=== PATIENT | female | born 1975 | race Caucasian/White ===

== ENCOUNTER 2017-08-25 10:28 | Outpatient (CLI) | payer OTHER | END 2017-08-25 10:29 | disposition home or self-care (01) | LOC: LABHHL 10:28 | PROVIDERS: ATTEND Surgery | DX: N60.91 Unspecified benign mammary dysplasia of right breast (principal) | CPT/HCPCS: 88305 ==

== ENCOUNTER 2018-01-11 14:06 | Outpatient (CLI) | payer OTHER ==
--- NOTE | 2018-01-12 16:05 | Magnetic Resonance Report ---
BILATERAL BREAST MRI WITHOUT AND WITH CONTRAST: 01/11/18 14:06:00 CLINICAL: High risk for breast cancer. Status post right benign breast biopsies at 11 o'clock 6 cm from the nipple and at 8:30 o'clock 4 cm from the nipple. COMPARISON:01/01/18 screening mammogram. TECHNIQUE: Axial 1.0-mm T1 without, axial high resolution 2.0-mm T2 and axial 1.0-mm dynamic Vibrant high-resolution postcontrast T1 fat saturation sequences on a 1.5 Mony magnet. The examination was performed with an 8 channel dedicated [place] breast coil. Post processing with CAD and subtraction was performed on an [employer] workstation. 15.0 cc of Multihance was injected without incident for the contrast portion of the exam. Consent was obtained prior to the administration of the contrast. FINDINGS: Right: Minimal background parenchyma enhancement. An oval smooth enhancing mass in the lower outer quadrant at 8 o'clock 9.2 cm from the nipple measures 12.0 x 1.1 x 0.6 cm. It demonstrates homogeneous enhancement with a relatively low peak enhancement at 77% and 100% type I persistent waveform. The mass is hypointense on T1. No other mass or suspicious enhancement. No suspicious lymph nodes. Left: Minimal background parenchymal enhancement. No mass or suspicious enhancement. A 3 cm x 1.5 cm left axillary lymph node has central fat that has an asymmetrically thickened (7 mm) cortex. IMPRESSION: Negative study except for a large mildly suspicious left axillary lymph node with asymmetric cortical thickening. Recommend ultrasound-guided needle core biopsy of the left axillary lymph node to confirm benignity. RIGHT BI-RADS 1 -- Negative LEFT BI-RADS 4A -- Mildly Suspicious
== END 2018-01-11 14:07 | disposition home or self-care (01) ==
LOC: SPVIMAG 14:06
PROVIDERS: ATTEND Surgery
DX: N60.21 Fibroadenosis of right breast (principal); N60.32 Fibrosclerosis of left breast; N60.31 Fibrosclerosis of right breast; Z80.3 Family history of malignant neoplasm of breast
CPT/HCPCS: A9577; C8908; 77059

== ENCOUNTER 2018-01-24 16:06 | Outpatient (CLI) | payer OTHER | END 2018-01-24 16:07 | disposition home or self-care (01) | LOC: LABHHL 16:06 | PROVIDERS: ATTEND Surgery | DX: R59.0 Localized enlarged lymph nodes (principal) | CPT/HCPCS: 88305 ==

== ENCOUNTER 2021-07-21 15:27 | Outpatient (CLI) | payer OTHER ==
--- NOTE | 2021-07-21 17:02 | Mammography Report ---
DIGITAL DIAGNOSTIC MAMMOGRAM WITH CAD CONVENTIONAL, 07/21/2021 CLINICAL INFORMATION / INDICATION: Patient presents for evaluation of diffuse right breast pain. TECHNIQUE: Digital bilateral mammographic imaging was performed. Spot compression views were obtaine d. This examination was interpreted with the benefit of Computer-aided Detection analysis. COMPARISON: Prior mammograms 02/07/2020 and 02/04/2019 FINDINGS: Breast Density: The breasts are extremely dense, which lowers the sensitivity of mammography. No dominant mass, suspicious calcifications or architectural distortion in the right breast. There ar e stable biopsy clips seen in the right breast. There is no mammographic abnormality identified to ac count for right breast pain. There is suggestion of a 1.5 cm obscured oval mass seen in the posterior upper outer quadrant of the left breast located approximately 10 cm from the nipple. IMPRESSION: 1. There is no mammographic abnormality identified to account for right breast pain, therefore clinic al correlation is recommended. 2. There is suggestion of an obscured oval mass in the upper outer quadrant of the left breast. Ultra sound is not available today, and therefore recommend patient return for targeted left breast ultraso und for further evaluation. Follow up recommendation: Ultrasound BI-RADS Category 0: INCOMPLETE. Needs additional imaging evaluation and/or prior mammograms for moshe yung. A "normal" or negative report should not discourage follow up or biopsy of a clinically significant f inding. A written summary of these findings will be mailed to the patient. The patient will be entered into a mammography reporting system which will generate a reminder letter for the patient's next appointmen t at the appropriate interval. According to the [employer], yearly mammograms are recommended starting at age 40 and continuing as long as a woman is in good health. Breast MRI is recommended for women with an olivia roximately 20-25% or greater lifetime risk of breast cancer, including women with a strong family his tory of breast or ovarian cancer and women who have been treated for Hodgkin's disease. Signer Name: Yina Hernandez MD Signed: 07/21/2021 4:57 PM Workstation Name: [id number]
== END 2021-07-21 15:28 | disposition home or self-care (01) ==
LOC: SPVWC 15:27
PROVIDERS: ATTEND Surgery
DX: N64.4 Mastodynia (principal); R92.8 Other abnormal and inconclusive findings on diagnostic imaging of breast
CPT/HCPCS: 77066

== ENCOUNTER 2021-08-02 13:37 | Outpatient (CLI) | payer OTHER ==
--- NOTE | 2021-08-02 14:31 | Ultrasound Report ---
ULTRASOUND BREAST LEFT LIMITED, 08/02/2021 CLINICAL INFORMATION / INDICATION: R92.8. Possible 1.5 cm nodule in the left upper outer quadrant pos teriorly on bilateral diagnostic mammography from 07/21/21. TECHNIQUE: Targeted ultrasound evaluation was performed of the area of interest. COMPARISON: 07/21/21. FINDINGS: There is a 1.4 cm hypoechoic solid nodule at the 1:00 position 7 cm from the nipple which corresponds to the site of the mammographically detected nodule. The lesion has slightly irregular/microlobulate d margins. No posterior features are seen. There is mild peripheral blood flow on Doppler exam. The l esion is new or better seen than on prior exams. IMPRESSION: 1.4 cm solid nodule in the left upper outer quadrant corresponds to the site of the mammo graphic abnormality. Biopsy is recommended. Follow up recommendation: Biopsy BI-RADS Category 4: SUSPICIOUS FOR MALIGNANCY. A normal or "negative" report should not preclude biopsy or follow-up of a clinically suspicious find ing. Signer Name: Stefan Schwarz MD Signed: 08/02/2021 2:27 PM Workstation Name: [id number]
== END 2021-08-02 13:38 | disposition home or self-care (01) ==
LOC: US 13:37
PROVIDERS: ATTEND Surgery
DX: N63.21 Unspecified lump in the left breast, upper outer quadrant (principal)